=== PATIENT | male | born 1990 ===

== ENCOUNTER 2017-01-31 03:05 | Emergency (ER) | payer SELFPAY ==
[~2017-01-31] VITALS: Ht 172.7 cm; Wt 68.1 kg
[2017-01-31 03:24] VITALS: Ht 172.7 cm; Wt 68.1 kg
[2017-01-31] MEDS ORDERED: KETOROLAC 30 MG INJ IV STA (04:10)
[2017-01-31] MEDS ORDERED: CLINDAMYCIN 600 MG/D5W (PMX) 50 ML IVPB SCH (04:30)
--- NOTE | 2017-01-31 04:47 | ERD ---
ER Documentation Chief Complaint Date/Time DATE: 01/31/17 TIME: 04:21 Chief Complaint LT THIGH WOUND X1 MTH DENIES HAVING TX, +REDNESS/SWELLING HPI 26-year-old male presents here in emergency department for complaints of a wound on the left thigh area for one month now, it was oozing with purulent discharge, crusts of honey-colored lesions, patient is complaining of pain, throbbing pain, question scale, not better. Tonight. Patient denies any fever or chills. Patient denies any numbness or tingling. ROS All systems reviewed and are negative except as per history of present illness. Allergies Allergies: Coded Allergies: No Known Allergy (Unverified , 01/31/17) PMhx/Soc Medical and Surgical Hx: pt denies Medical Hx, pt denies Surgical Hx Hx Alcohol Use: No Hx Substance Use: Yes (smoke meth) Hx Tobacco Use: Yes (1/2 PPD) Smoking Status: Current every day smoker FmHx Family History: No coronary disease, No diabetes, No other Physical Exam Vitals Vital Signs Date Time Temp Pulse Resp B/P Pulse Ox O2 Delivery O2 Flow Rate FiO2 01/31/17 03:24 98.0 90 20 120/80 100 Physical Exam GENERAL: The patient is well developed and appropriate for usual state of health, in no apparent distress. CHEST: Clear to auscultation bilaterally. There are no rales, wheezes or rhonchi. HEART: Regular rate and rhythm. No murmurs, clicks, rubs or gallops. No S3 or S4. ABDOMEN: Soft, nontender and nondistended. Good bowel sounds. No rebound or guarding. No gross peritonitis. No gross organomegaly or masses. No Gil sign or McBurney point tenderness. BACK: No midline or flank tenderness. EXTREMITIES: Equal pulses bilaterally. There is no peripheral clubbing, cyanosis or edema. No focal swelling or erythema. Full range of motion. Grossly neurovascularly intact. NEURO: Alert and oriented. Cranial nerves 2-12 intact. Motor strength in all 4 extremities with 5/5 strength. Sensation grossly intact. Normal speech and gait. SKIN: Noted erythematous indurated area with honey crusted lesions surrounding in the right thigh area. There is no apparent ecchymosis or petechia. The skin is warm and dry. HEMATOLOGIC AND LYMPHATIC: There is no evidence of excessive bruising or lymphedema. No gross cervical, axillary, or inguinal lymphadenopathy. Results 24 hrs Current Medications Medications (Trade) Dose Ordered Sig/Vincenzo Route PRN Reason Start Time Stop Time Status Last Admin Dose Admin Clindamycin HCl/ Dextrose (Cleocin 600 Mg/ D5W (Pmx)) 50 ml @ 50 mls/hr ONCE IVPB 01/31/17 04:30 01/31/17 05:29 Ketorolac Tromethamine (Toradol) 30 mg ONCE STAT IV 01/31/17 04:10 01/31/17 04:11 DC IV clindamycin was given to help with infection, patient tolerated medication well.Patient was given medication for pain here in emergency department, after treatment, patient verbalized feeling much better. Patient's pain is improved. Procedures/MDM Medical decision making: Patient symptoms was most likely consistent with cellulitis. No symptoms of necrosis, no abscesses noted. No symptoms of sepsis at this time. Patient appears well and stable. Prescription was given for clindamycin, ibuprofen, patient is advised to take medications as prescribed, recheck in 2 days. Patient is advised to return to emergency department for worsening symptoms. Departure Diagnosis: Primary Impression: Cellulitis Site of cellulitis: extremity Site of cellulitis of extremity: lower extremity Laterality: right Qualified Code: L03.115 - Cellulitis of right lower extremity Condition: Stable Patient Instructions: Cellulitis JEAN PAUL ASHBY NP Jan 31, 2017 04:39
[2017-01-31] MEDS ORDERED: IBUP-1542 PO (04:48)
[2017-01-31] MEDS ORDERED: CLIN-73 PO (04:48)
[2017-01-31 05:03] VITALS: BP 118/71; PULSE 77; RESP 17; TEMP 98.3
== END 2017-01-31 05:10 | disposition home or self-care (01) ==
LOC: FTE 03:05
DX: L03.115 Cellulitis of right lower limb (principal); F17.210 Nicotine dependence, cigarettes, uncomplicated
CPT/HCPCS: 96374